=== PATIENT | female | born 1945 | race Caucasian/White ===

== ENCOUNTER 2017-06-12 19:09 | Emergency (ER) | payer MEDICARE ==
[~2017-06-12] VITALS: Ht 165.1 cm; Wt 65.8 kg
[2017-06-12 19:45] VITALS: BP 214/86; PULSE 93; RESP 20; TEMP 100.7; O2SAT 97
[2017-06-12 19:55] VITALS: BP 214/86; PULSE 93; RESP 18; TEMP 100.7; O2SAT 97
[2017-06-12] MEDS ORDERED: AMOX500T2 PO (19:58)
[2017-06-12] MEDS ORDERED: LIDOCAINE HCL 1% 50 ML VIAL INFIL ONE (20:00)
[2017-06-12] MEDS ORDERED: CLINDAMYCIN INJ 600 MG in SODIUM CHLORIDE 0.9% INJ 100 ML IV ONE (20:00)
[2017-06-12] MEDS ORDERED: SODIUM CHLORID 0.9% 500 ML INJ 500 ML IV ONE (20:00)
[2017-06-12] MEDS ORDERED: TETANUS/DIPHTHERIA TOXOID ADULT 0.5 ML VIAL IM ONE (20:00)
--- NOTE | 2017-06-12 20:04 | PD ---
HPI Chief Complaint: Skin Problem Time Seen by Provider: 19:55 Travel History International Travel<30 days: No Contact w/Intl Traveler<30days: No Traveled to known affect area: No History of Present Illness HPI The patient is a 72-year-old female who presents emergency department for swollen, erythematous, painful third digit of the right hand. The patient was working in the yard yesterday which she thinks she was possibly bitten by an insect. The third digit of the left hand became swollen, erythematous, and painful. The patient was seen by her primary physician to place the needle into the affected area took a culture and placed on Augmentin. However, the patient states the swelling, erythema has enlarged in his progress to the left hand. She denies any fever. Symptoms are moderate. She denies any difficulty with flexion or extension of the affected digit. Symptoms are moderate. Possibly exacerbated after being bit by an insect. There are no current alleviating factors. PFSH Past Medical History Medical History: Denies Significant Hx Diminished Hearing: No Tetanus Vaccination: < 5 Years Influenza Vaccination: No ?: Not Menopausal: Yes Social History Alcohol Use: Yes (SOCIAL) Tobacco Use: No Substance Use: No Allergies-Medications (Allergen,Severity, Reaction): Coded Allergies: No Known Allergies (Unverified , 06/12/17) Reported Meds & Prescriptions Reported Meds & Active Scripts Active Bactrim DS (Sulfamethoxazole-Trimethoprim) 800-160 Mg Tab 1 Tab PO BID [place] (Hydrocodone-Acetaminophen) 5 Mg-325 Mg Tab 1 Tab PO Q6H PRN Reported Amoxicillin-Clavulanate 500-125 mg Tab 500 Mg PO TID Review of Systems Except as stated in HPI: all other systems reviewed are Neg General / Constitutional: No: Fever Musculoskeletal: Positive: Edema, Pain, No: Limited ROM Skin: Positive Other (erythema) Neurologic: No: Paresthesia, Sensory Disturbance Physical Exam Narrative GENERAL: Awake, alert, 72 year-old female who appears her stated age and is in no acute respiratory distress. SKIN: Focused skin assessment warm/dry. HEAD: Atraumatic. Normocephalic. EYES: No injection or drainage. ENT: No nasal bleeding or discharge. Mucous membranes pink and moist. NECK: Trachea midline. No JVD. MUSCULOSKELETAL: Third digit of the right hand reveals erythema and edema. Patient is able flex at the MCP, PIP, DIP, she is able to completely extend the digit. There is mild edema of the right hand proximal to the affected area the second, third, fourth MCP. Positive right radial pulse. NEUROLOGICAL: Awake and alert. No obvious cranial nerve deficits. Motor grossly within normal limits. Normal speech. PSYCHIATRIC: Appropriate mood and affect; insight and judgment normal. Data Data Last Documented VS Vital Signs Date Time Temp Pulse Resp B/P (MAP) Pulse Ox O2 Delivery O2 Flow Rate FiO2 06/12/17 19:55 100.7 93 18 214/86 (128) 97 Room Air Orders Orders Basic Metabolic Panel (Bmp) (06/12/17 19:59) Complete Blood Count With Diff (06/12/17 19:59) Blood Culture (06/12/17 19:59) Wound Culture And Gram Stain (06/12/17 19:59) Iv Access Insert/Monitor (06/12/17 19:59) Lidocaine 1% Inj (50 Ml) (Xylocaine 1% I (06/12/17 20:00) Clindamycin Inj (Cleocin Inj) (06/12/17 20:00) Tetanus/Diphtheria Tox Adult (Tetanus/Di (06/12/17 20:00) Sodium Chlorid 0.9% 500 Ml Inj (Ns 500 M (06/12/17 20:00) Lidocaine Pf 1% Inj (Xylocaine-Mpf 1% In (06/12/17 20:07) Acetamin-Hydrocod 325-5 Mg ([place] 5-325 (06/12/17 20:30) Labs Laboratory Tests Test 06/12/17 20:05 White Blood Count 9.8 TH/MM3 Red Blood Count 4.56 MIL/MM3 Hemoglobin 13.4 GM/DL Hematocrit 39.0 % Mean Corpuscular Volume 85.6 FL Mean Corpuscular Hemoglobin 29.5 PG Mean Corpuscular Hemoglobin Concent 34.5 % Red Cell Distribution Width 12.5 % Platelet Count 190 TH/MM3 Mean Platelet Volume 8.8 FL Neutrophils (%) (Auto) 76.2 % Lymphocytes (%) (Auto) 11.6 % Monocytes (%) (Auto) 10.7 % Eosinophils (%) (Auto) 0.7 % Basophils (%) (Auto) 0.8 % Neutrophils # (Auto) 7.5 TH/MM3 Lymphocytes # (Auto) 1.1 TH/MM3 Monocytes # (Auto) 1.0 TH/MM3 Eosinophils # (Auto) 0.1 TH/MM3 Basophils # (Auto) 0.1 TH/MM3 CBC Comment DIFF FINAL Differential Comment Blood Urea Nitrogen 11 MG/DL Creatinine 0.71 MG/DL Random Glucose 115 MG/DL Calcium Level 9.1 MG/DL Sodium Level 138 MEQ/L Potassium Level 3.7 MEQ/L Chloride Level 103 MEQ/L Carbon Dioxide Level 29.1 MEQ/L Anion Gap 6 MEQ/L Estimat Glomerular Filtration Rate 81 ML/MIN MDM Medical Decision Making Medical Screen Exam Complete: Yes Emergency Medical Condition: Yes Medical Record Reviewed: Yes Interpretation(s) Laboratory Tests Test 06/12/17 20:05 White Blood Count 9.8 TH/MM3 Red Blood Count 4.56 MIL/MM3 Hemoglobin 13.4 GM/DL Hematocrit 39.0 % Mean Corpuscular Volume 85.6 FL Mean Corpuscular Hemoglobin 29.5 PG Mean Corpuscular Hemoglobin Concent 34.5 % Red Cell Distribution Width 12.5 % Platelet Count 190 TH/MM3 Mean Platelet Volume 8.8 FL Neutrophils (%) (Auto) 76.2 % Lymphocytes (%) (Auto) 11.6 % Monocytes (%) (Auto) 10.7 % Eosinophils (%) (Auto) 0.7 % Basophils (%) (Auto) 0.8 % Neutrophils # (Auto) 7.5 TH/MM3 Lymphocytes # (Auto) 1.1 TH/MM3 Monocytes # (Auto) 1.0 TH/MM3 Eosinophils # (Auto) 0.1 TH/MM3 Basophils # (Auto) 0.1 TH/MM3 CBC Comment DIFF FINAL Differential Comment Blood Urea Nitrogen 11 MG/DL Creatinine 0.71 MG/DL Random Glucose 115 MG/DL Calcium Level 9.1 MG/DL Sodium Level 138 MEQ/L Potassium Level 3.7 MEQ/L Chloride Level 103 MEQ/L Carbon Dioxide Level 29.1 MEQ/L Anion Gap 6 MEQ/L Estimat Glomerular Filtration Rate 81 ML/MIN Differential Diagnosis Differential diagnosis includes tenosynovitis, abscess, infected wound, cellulitis, sepsis. Narrative Course IV was established, labs are drawn and sent, and a culture was ordered. Incision and drainage of the affected area was performed. The patient's tetanus shot was updated earlier today. The patient was placed on Augmentin, however, I will also add Bactrim to cover for MRSA until cultures are obtained. The patient was administered clindamycin 600 mg intravenously. Blood cultures were obtained and sent to lab. The patient is advised to follow-up with her primary physician for reevaluation of the wound tomorrow. Procedures Procedure Narrative After the risks and benefits were discussed the following procedure was performed: INCISION AND DRAINAGE OF ABSCESS: The area was prepped and was sterilely draped. A digital block with 1% lidocaine was used to anesthetize the area. The area was properly anesthetized. A number 11 scalpel was used to make a 1.5 cm incision across the area of the abscess. Cultures were obtained. The abscess was drained an irrigated with normal saline. Sterile dressing was applied. Diagnosis Primary Impression: Infected bite wound of finger Qualified Codes: S61.259A - Open bite of unspecified finger without damage to nail, initial encounter; L08.9 - Local infection of the skin and subcutaneous tissue, unspecified Patient Instructions: General Instructions Additional Instructions: Medications as directed. Follow-up with your primary physician for reevaluation of the wound tomorrow. Return if symptoms worsen or progress. Med/Other Pt SpecificInfo: Prescription(s) given Scripts Sulfamethoxazole-Trimethoprim (Bactrim DS) 800-160 Mg Tab 1 TAB PO BID for Infection, #20 TAB 0 Refills Prov: Brad Haddad MD 06/12/17 Hydrocodone-Acetaminophen ([place]) 5 Mg-325 Mg Tab 1 TAB PO Q6H Y for PAIN, #12 TAB 0 Refills Prov: Brad Haddad MD 06/12/17 Disposition: 01 DISCHARGE HOME Condition: Stable Brad Haddad MD Jun 12, 2017 20:04
[2017-06-12] MEDS ORDERED: LIDOCAINE HCL 1% PF 30 ML VIAL ONE (20:07)
[2017-06-12 20:23] LABS: AUTOMATED NEUTROPHIL # 7.5 TH/MM3 (1.8-7.7); BASOPHIL # 0.1 TH/MM3 (0-0.2); BASOPHIL % 0.8 % (0.0-2.0); EOSINOPHIL # 0.1 TH/MM3 (0-0.4); EOSINOPHIL % 0.7 % (0.0-4.0); HEMOGLOBIN 13.4 GM/DL (11.6-15.3); LYMPH % 11.6 % (9.0-44.0); LYMPHOCYTE # 1.1 TH/MM3 (1.0-4.8); MEAN CELL VOLUME 85.6 FL (80.0-100.0); MEAN CORPUSCULAR HEMOGLOBIN 29.5 PG (27.0-34.0); MEAN CORPUSCULAR HGB CONC 34.5 % (32.0-36.0); MEAN PLATELET VOLUME 8.8 FL (7.0-11.0); MONO % 10.7 % (0.0-8.0); NEUT % 76.2 % (16.0-70.0); PLATELET COUNT 190 TH/MM3 (150-450); RED BLOOD COUNT 4.56 MIL/MM3 (4.00-5.30); RED CELL DISTRIBUTION WIDTH 12.5 % (11.6-17.2); WHITE BLOOD COUNT 9.8 TH/MM3 (4.0-11.0)
[2017-06-12] MEDS ORDERED: BACT800T5 PO (20:23)
[2017-06-12] MEDS ORDERED: NORC5TAB PO (20:23)
[2017-06-12] MEDS ORDERED: ACETAMINOPHEN/HYDROcodone 325 MG/5 MG TAB PO ONE (20:30)
[2017-06-12 20:34] LABS: BICARBONATE 29.1 MEQ/L (21.0-32.0); CALCIUM 9.1 MG/DL (8.5-10.1)
[2017-06-12 20:38] LABS: CREATININE 0.71 MG/DL (0.50-1.00)
[2017-06-12 21:13] VITALS: BP 132/69; PULSE 75; RESP 16; TEMP 99.5; O2SAT 93
== END 2017-06-12 21:32 | disposition home or self-care (01) ==
LOC: PHEFT 19:09
DX: L02.511 Cutaneous abscess of right hand (principal); S60.462A Insect bite (nonvenomous) of right middle finger, initial encounter; B95.62 Methicillin resistant Staphylococcus aureus infection as the cause of diseases classified elsewhere; W57.XXXA Bitten or stung by nonvenomous insect and other nonvenomous arthropods, initial encounter; Y93.H2 Activity, gardening and landscaping; Y92.096 Garden or yard of other non-institutional residence as the place of occurrence of the external cause
CPT/HCPCS: 26010; 80048; 85025; 86403; 87040; 87070; 87186; 96365; 99284; J7040; 87205; 90471